=== PATIENT | female | born 1945 | race Caucasian/White ===

== ENCOUNTER 2019-11-03 05:47 | Day surgery (SDC) | payer OTHER ==
[~2019-11-03] VITALS: Ht 149.9 cm; Wt 61.2 kg
[2019-11-03] MEDS ORDERED: fentaNYL 0.05 MG/ML VIAL ONE (07:23)
[2019-11-03] MEDS ORDERED: MIDAZOLAM 2 MG/2 ML VIAL ONE (07:23)
[2019-11-03] MEDS ORDERED: fentaNYL 0.05 MG/ML VIAL IVP ONE (07:55)
[2019-11-03] MEDS ORDERED: MIDAZOLAM 2 MG/2 ML VIAL IVP ONE (07:55)
== END 2019-11-03 08:43 | disposition home or self-care (01) ==
LOC: MDS 05:47 → MMU 06:11 → MDS 08:43
PROVIDERS: ATTEND Internal Medicine Gastroenterology
DX: R10.13 Epigastric pain (principal); K29.70 Gastritis, unspecified, without bleeding; K52.832 Lymphocytic colitis; E78.00 Pure hypercholesterolemia, unspecified; I10 Essential (primary) hypertension; Z90.710 Acquired absence of both cervix and uterus; Z79.899 Other long term (current) drug therapy
CPT/HCPCS: 36415; 43239; 86677; J3010; J2250